=== PATIENT | female | born 1985 | race Caucasian/White ===

== ENCOUNTER 2023-05-26 16:05 | Outpatient (AMB) | payer OTHER, SELFPAY ==
--- NOTE | 2023-05-26 16:10 | MHC.OFFWIV ---
Intake Vital Signs 05/26/23 16:13 Height 5 ft 6 in Weight 135 lb BMI 21.8 BP 100/62 Blood Pressure Location Lt brachial Position Sitting Pulse 102 H Pulse Source Pulse Oximeter Temp 98.4 F Temp Source Temporal Artery Scan Pulse Oximetry (%) 98 Oxygen Delivery Method Room Air Intake Visit Reasons: [employer] upper respiratory (masked, lobby) Intake Note: Patient here for coughing green mucus that has been present for about 2 weeks. pt states the last time this happened she had an upper resp infection but this is worse. Patient Tobacco Use Status: Current everyday Tobacco user Allergies No Known Allergies Allergy (Unverified 05/26/23 16:13) Do you need a note to return to daycare/school/sports/work: Yes HPI HPI Comments History of Present Illness Details 37-year-old female who presents for cough congestion. Patient states that she has had productive cough nasal congestion sinus pressure. She endorses some chills with a temperature. Since last approximately 2 weeks she had a brief 3 day period where she started to feel better and symptoms returned she feels worse. [facility] Social History Patient Tobacco Use Status: Current everyday Tobacco user Review of Systems Const All systems reviewed & are unremarkable except as noted in HPI and below Reports as per HPI ENT Reports nasal congestion and Reports nasal discharge Resp Reports change in phlegm color, Reports chest congestion and Reports cough Physical Exam Vital Signs: Last Vital Signs Temp 98.4 F 05/26/23 16:13 Pulse 102 H 05/26/23 16:13 BP 100/62 05/26/23 16:13 Pulse Ox 98 05/26/23 16:13 Oxygen Delivery Method Room Air 05/26/23 16:13 BMI result Body Mass Index 21.8 Const General: cooperative, no acute distress and alert Orientation/consciousness: patient oriented x3 Limitations: no limitations HEENT Head: Yes normal to inspection Ears: hearing grossly normal bilaterally and external ears normal General nose exam: Normal external nose present Eyes General: appearance normal, both eyes and all related structures Neck Neck: Yes normal visual inspection Chest Chest palpation & inspection: normal inspection of the chest Resp Effort & Inspection: able to speak in complete sentences, no audible wheezes and Actively coughing Auscultation: rhonchi Cardio Rate: regular rate Rhythm: regular rhythm GI Inspection: Yes normal to inspection Palpation (GI): Soft to palpation and nontender Skin General skin exam: no rashes or lesions noted Neuro General: patient oriented x3 Psych Appearance: grossly normal Mental Status: mental status grossly normal Speech and movement: Normal speech and movement present Affect: normal affect Attitude: cooperative Thought process: Normal thought process present Thought content: Normal thought content present Assessment & Plan Assessment & Plan (1) Upper respiratory infection: Code(s): J06.9 - Acute upper respiratory infection, unspecified Plan VSS. On exam patient is insulin oriented no acute distress exam notable for rhonchi in the bases bilaterally. Duration since patient likely suffering from URI with superimposed smoking pneumonia. Given the hypoxic tachypneic will hold off on x-ray. Prescribed azithromycin 5 day course. Discharge instructions, follow up and treatment are discussed with patient in my usual fashion. Alternatives in treatment are also discussed. The patient will return for worsening symptoms or as needed. Advised that any labs/imaging ordered will be followed up on and contact made if further treatment needed. Counseled that patient's condition may require further evaluation and/or treatment. Symptoms of concern for worsening disorder discussed in detail in my customary manner. Patient does verbalize understanding of the plan, there are no apparent barriers to communication. The patient is given the opportunity to ask questions and have them answered to his/her satisfaction Medications: New azithromycin For 250 mg dose pack: take 500 mg today (day 1), then 250 mg for 4 days (days 2-5) PO 6 tabs 0RF Patient Instructions: You were seen and evaluated for your cold-like symptoms. We cannot say for sure at this time examination is reassuring. We believe is likely suffering from a viral URI. Recommend continued symptomatic treatment using saline rinses Tylenol Motrin as needed. You have been prescribed azithromycin. You should return to clinic or the emergency department if you experience any new worsening symptoms such as chest pain, shortness of breath, nausea, vomiting, abdominal pain, or any concerning symptoms I mentioned above. Coding Level of Care Code New Pt Level 4 (49980) Diagnoses Upper respiratory infection J06.9
[2023-05-26 16:13] VITALS: BP 100/62; PULSE 102; TEMP 36.9; O2SAT 98; BMI 21.8
== END 2023-05-26 16:25 | disposition home or self-care (01) ==
PROVIDERS: Visit Provider Physician Assistant
DX: J06.9 Acute upper respiratory infection, unspecified (principal)
CPT/HCPCS: 99204